=== PATIENT | male | born 2005 | race Caucasian/White ===

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

== ENCOUNTER 2024-06-02 15:35 | Emergency (ER) | payer OTHER, SELFPAY ==
--- NOTE | 2024-06-02 15:41 | ED_ITS ---
HPI - Ear Problem General Chief complaint: Ear Stated complaint: EAR CLOGGED Time Seen by Provider: 06/02/24 15:49 Source: patient, RN notes reviewed and old records reviewed Mode of arrival: ambulatory Limitations: no limitations History of Present Illness HPI Narrative: 19-year-old male presents to the [facility] with right ear clogged for several days. Tried cleaning it out with a camera in a tool attached to his phone. Location: right ear Treatment prior to arrival: attempt at ear wax removal Related Data Home Medications ?Medication ?Instructions ?Recorded ?Confirmed ?Last Taken ?Type No Home Medications 06/02/24 06/02/24 Unknown History Allergies Allergy/AdvReac Type Severity Reaction Status Date / Time No Known Allergies Allergy Verified 06/02/24 15:45 Review of Systems Review of Systems: All systems reviewed & are unremarkable except as noted in HPI and below Constitutional: Constitutional: Reports no additional constitutional complaints ENT: Reports as per HPI Cardiovascular: Cardiovascular: Reports no additional cardiovascular complaints, Denies chest pain and Denies dyspnea Respiratory: Respiratory: Reports no additional respiratory complaints, Denies chest congestion, Denies cough and Denies dyspnea Musculoskeletal: Musculoskeletal: Reports no additional musculoskeletal complaints Integumentary/Breasts: Skin/Breast: Reports system reviewed and no additional complaints, except as docu PMFSH Past Medical History Medical History (Updated 06/02/24 @ 16:21 by Amie Amin APRN) Rhabdosarcoma (~2008) Thyroid disorder Anxiety Fever after COVID-19 vaccination Surgical History Surgical History (Updated 06/04/23 @ 13:12 by Lupe Hester CMA) History of cataract surgery Family History Family History (Updated 06/04/23 @ 13:10 by Lupe Hester CMA) Father Anxiety and depression Heart disease Mother Anxiety and depression Sibling Anxiety and depression Grandparent Alcoholism Social History Social History (Updated 06/04/23 @ 13:19 by Lupe Hester CMA) Smoking status: Never smoker Second hand tobacco smoke exposure: No Alcohol intake: current Drinks per week: 3 Substance use: current Substance use type: marijuana Lack of Transportation: No Lack of Food: Never True Current Housing: I Have Housing Concerned About Future Housing: No Difficulty Paying Gas/Electric Bills: No Difficulty Paying for Meds: No Currently Unemployed: No Education: High School Diploma/GED Difficulty w/ Childcare or Family Care: No Living arrangements: with family Occupation/Education: student Comments At the time of my signature, I reviewed and agree with the nursing past medical, surgical, social, and family history. There is no relevant family history pertinent to the patient complaint. Exam Const: General: cooperative, healthy appearing, comfortable, no acute distress, well developed, alert and well nourished Nutritional Appearance: well nourished Orientation/consciousness: patient oriented x3 Limitations: no limitations HENMT: Head: normal to inspection Ears: hearing grossly normal bilaterally, external ears normal, TM normal on the left, mastoids normal, no periauricular adenopathy, Abnormal EAC present cerumen impaction on the right and excessive c erumen on the left; no erythema, no edema and no EA tenderness and unable to visualize TM on the right Eyes: General: appearance normal, both eyes and all related structures Alignment and Position: alignment normal Neck: Neck: normal visual inspection, full ROM, no lymphadenopathy and no meningeal signs Chest: Chest palpation & inspection: normal inspection of the chest Resp: Effort & Inspection: normal respiratory effort and able to speak in complete sentences Auscultation: clear to auscultation bilaterally, no crackles, no rales, no rhonchi and no wheezes Cardio: Rate: regular rate Skin: General skin exam: normal color and no rashes or lesions noted Neuro: General: patient oriented x3, gait normal, moves all extremities and no meningeal signs Cognition (Neuro): normal cognition Speech: normal speech Gait exam (Neuro): Normal gait present Extrem: General: normal to inspection, full ROM, capillary refill normal and normal gait Psych: Appearance: grossly normal and well kempt Mental Status: mental status grossly normal Speech and movement: Normal speech and movement present and Clear speech present Affect: normal affect Attitude: cooperative Course Course Level of Care: Express Care Visit Vital Signs Vital signs: Vital Signs Temperature 99.8 F H 06/02/24 15:46 Pulse Rate 91 06/02/24 15:46 Respiratory Rate 16 06/02/24 15:46 Blood Pressure 136/76 06/02/24 15:46 Pulse Oximetry 100 06/02/24 15:46 Temperature 99.8 F H 06/02/24 15:46 Pulse Rate 91 06/02/24 15:46 Respiratory Rate 16 06/02/24 15:46 Blood Pressure 136/76 06/02/24 15:46 Pulse Oximetry 100 06/02/24 15:46 Reviewed Procedures Ear Wax Removal Right Ear: Ear Wax Removal Date: 06/02/24 Ear Wax Removal Time: 16:15 Cerumenolytic Used: other (water peroxide) Results: Re-examined: cerumen removed completely TM Examination: TM(s) intact, normal appearance Ear Canal Exam: atraumatic Patient Tolerated Procedure: well Complications: no problems Technique: ear canal irrigated Medical Decision Making MDM Narrative Medical decision making narrative: Patient sitting comfortably in exam room. Nontoxic, vitals stable. Patient in no acute distress Patient presents forDecreased hearing right ear. patient with substantial earwax. Ear irrigated, earwax removed. Patient improved hearing. Patient appropriate for outpatient treatment with close follow Discharge instructions reviewed with patient, as well as provided in writing per nursing staff. The instructions also include specific and strict return/GO TO THE ER as well as f/u information. All questions have been answered, and the patient deny any further questions with discharge and discharge plan. Some parts of this dictation were generated by voice recognition software and may contain typographical and/or grammatical inaccuracies. Differential Diagnosis Differential Diagnosis: otitis media, serous otitis, otitis externa, cerumen impaction Medical Records Medical records reviewed: Yes I reviewed the external patient's medical records. Vital Signs Vital Signs: Vital Signs Temperature 99.8 F H 06/02/24 15:46 Pulse Rate 91 06/02/24 15:46 Respiratory Rate 16 06/02/24 15:46 Blood Pressure 136/76 06/02/24 15:46 Pulse Oximetry 100 06/02/24 15:46 Temperature 99.8 F H 06/02/24 15:46 Pulse Rate 91 06/02/24 15:46 Respiratory Rate 16 06/02/24 15:46 Blood Pressure 136/76 06/02/24 15:46 Pulse Oximetry 100 06/02/24 15:46 Reviewed Lab Data Lab results reviewed: Yes I reviewed the patient's lab results. Labs: Reviewed Critical Care Time Critical Care Time Critical Care Time: No Discharge Plan Discharge Clinical Impression: Impacted cerumen of right ear Patient Disposition: Home Condition: Stable Instructions: Antibiotic Form, Carbamide Peroxide (Into the ear) Additional Instructions: You had Cerumen (EAR wax impaction). Do not use Q-tips or put anything in the ear. This can damage the ear. Instead , use Debrox or ear wax remover. Place 5 drops in ear after a hot shower and place a warm compress over the ear for 20 minutes. alternate doing this every 3-4 days. It will break up the wax gently. Do not use too much pressure. Once you have all of the cerumen out of your ears, you may do preventative treatment to prevent this from happening again. Use 5 drops once weekly after a hot shower. Patient Language: Guamanian Prescriptions: No Action No Home Medications Follow-up/Referrals: UNKNOWN,DOCTOR [Primary Care Provider] - Stand Alone Forms: Work/School Release IP Time of Disposition: 16:21
[2024-06-02 15:46] VITALS: BP 136/76; PULSE 91; RESP 16; TEMP 37.7; O2SAT 100
== END 2024-06-02 16:26 | disposition home or self-care (01) ==
PROVIDERS: Emergency Provider Nurse Practitioner
DX: H61.21 Impacted cerumen, right ear (principal); F12.90 Cannabis use, unspecified, uncomplicated; Z85.831 Personal history of malignant neoplasm of soft tissue
CPT/HCPCS: 69209; 99212; A9270; G0463